=== PATIENT | female | born 2000 | race Two or more races ===

== ENCOUNTER 2024-07-15 15:30 | Outpatient (CLI) | payer OTHER | END 2024-07-15 15:40 | disposition home or self-care (01) | LOC: PPH VACUNA 15:30 | PROVIDERS: ATTEND Emergency Medicine Pediatric Emergency Medicine | DX: Z23 Encounter for immunization (principal) ==

== ENCOUNTER 2025-06-23 07:28 | Outpatient (CLI) | payer OTHER | END 2025-06-23 07:38 | disposition home or self-care (01) | LOC: PPH VACUNA 07:28 | PROVIDERS: ATTEND Emergency Medicine Pediatric Emergency Medicine | DX: Z23 Encounter for immunization (principal) ==